=== PATIENT | female | born 1955 | race Caucasian/White ===

== ENCOUNTER 2023-08-02 13:07 | Emergency (ER) | payer MEDICARE ==
--- NOTE | 2023-08-02 13:18 | ERPHSYRPT ---
- History of Present Illness Time Seen by Provider: 08/02/23 13:07 Historian: patient, EMS Exam Limitations: no limitations Physician History: Reportedly pt had a colonoscopy at [facility] on 07/23/23 where multiple polyps were removed. Pt started with diffuse 6/10 in severity abdominal cramps, hematemesis and dark blood in stool yesterday. Pt denies chest pain, fever, headache; admits to shortness of air for the past hour. Allergies/Adverse Reactions: No Known Drug Allergies Allergy (Verified 08/02/23 13:20) Home Medications: Atorvastatin Calcium 40 mg PO DAILY 08/02/23 [History] Dextromethorphan HBr/Quinidine [Nuedexta 20-10 mg Capsule] 1 each PO BID 08/02/23 [History] Duloxetine HCl 30 mg [Cymbalta 30 MG Capsule] 30 mg PO DAILY 08/02/23 [History] Levothyroxine Sodium 150 Mcg [Synthroid 150 Mcg] 150 mcg PO DAILY 08/02/23 [History] Propranolol HCl 10 mg PO LUNCH 08/02/23 [History] Propranolol HCl 20 mg PO BREAKFAST 08/02/23 [History] Valsartan/Hydrochlorothiazide [Valsartan-Hctz 160-25 mg Tab] 1 each PO DAILY 08/02/23 [History] Zonisamide 100 mg PO BID 08/02/23 [History] buPROPion HCL [Bupropion Xl] 450 mg PO DAILY 08/02/23 [History] - Review of Systems Constitutional: No Fever Ears, Nose, & Throat: No Throat Pain Respiratory: Dyspnea Cardiac: No Chest Pain Abdominal/Gastrointestinal: Abdominal Pain, Vomiting, Hematemesis, Melena Neurological: No Headache - Nursing Vital Signs Nursing Vital Signs: Initial Vital Signs Pulse Rate 128 H 08/02/23 13:07 Respiratory Rate 34 H 08/02/23 13:07 Blood Pressure 72/46 08/02/23 13:07 Pain Scale Pain Intensity 0 - Physical Exam General Appearance: alert Eye Exam: PERRL/EOMI Ears, Nose, Throat Exam: TMs normal, dry mucous membranes Neck Exam: normal inspection Respiratory Exam: lungs clear Cardiovascular Exam: tachycardia Gastrointestinal/Abdomen Exam: soft, tenderness (mild diffuse), other (B.S. mildly hyperactive and normotonic) Extremity Exam: No pedal edema Neurologic Exam: alert, cooperative Skin Exam: pale - Course EKG Interpreted by Me: RATE (127), Sinus Tach, NORMAL AXIS, Other (QTc = 442) - Radiology Exams Chest X-ray Interpretation: Teleradiologist Report (Right upper lung zone nodule likely a granuloma. No acute pulmonary disease.) - CT Exams Abdomen/Pelvis CT Interpretation: Tele-radiologist Report (See report.) Ordered Tests: Active Orders 24 hr Category Date Time Status EKG-ER Only STAT Care 08/02/23 13:13 Active EKG-ER Only STAT Care 08/02/23 17:44 Active IV Insertion STAT Care 08/02/23 13:13 Active ABDOMEN AND PELVIS W/0 CONTRAS [CT] Stat Exams 08/02/23 13:14 Completed CHEST 1 VIEW (PORTABLE) Stat Exams 08/02/23 13:18 Completed AMYLASE Stat Lab 08/02/23 13:15 Completed CBC W DIFF Stat Lab 08/02/23 13:15 Completed CMP Stat Lab 08/02/23 13:15 Completed CULTURE,URINE Stat Lab 08/02/23 13:13 Ordered LIPASE Stat Lab 08/02/23 13:15 Completed PROTIME WITH INR Stat Lab 08/02/23 13:15 Completed PTT Stat Lab 08/02/23 13:15 Completed TROPONIN Q4H Lab 08/02/23 13:15 Completed TROPONIN Q4H Lab 08/02/23 17:15 Completed TROPONIN Q4H Lab 08/02/23 21:15 Ordered UA W/RFX UR CULTURE Stat Lab 08/02/23 13:13 Ordered Transfer Order Routine Transfer 08/02/23 Ordered Medication Summary Generic Name Dose Route Start Last Admin Trade Name Freq PRN Reason Stop Dose Admin Sodium Chloride 1,000 mls @ 125 mls/hr 08/02/23 14:45 08/02/23 14:57 Sodium Chloride 0.9% 1000 Ml IV 09/01/23 14:44 125 mls/hr .Q8H JASIEL Administration Lorazepam 0.5 mg 08/02/23 16:07 08/02/23 16:09 Lorazepam 2 Mg/1 Ml 2 Mg Vial IV 09/01/23 16:06 0.5 mg Q4H PRN PRN Administration ANXIETY Lorazepam 0.5 mg 08/02/23 18:51 Lorazepam 2 Mg/1 Ml 2 Mg Vial IV 09/01/23 18:50 Q4H PRN PRN ANXIETY Discontinued Medications Generic Name Dose Route Start Last Admin Trade Name Kelsea PRN Reason Stop Dose Admin Sodium Chloride 1,000 mls @ 999 mls/hr 08/02/23 13:13 08/02/23 14:38 Sodium Chloride 0.9% 1000 Ml IV 08/02/23 14:13 Infused .Q1H1M STA Infusion Sodium Chloride Confirm 08/02/23 13:26 Sodium Chloride 0.9% 1000 Ml Administered 08/02/23 13:27 Dose 1,000 mls @ ud .ROUTE .STK-MED ONE Pantoprazole Sodium 40 mg 08/02/23 13:21 08/02/23 13:28 Pantoprazole 40 Mg Vial IV 08/02/23 13:22 40 mg STAT ONE Administration Pantoprazole Sodium Confirm 08/02/23 13:25 Pantoprazole 40 Mg Vial Administered 08/02/23 13:26 Dose 40 mg IV .STK-MED ONE Lab/Rad Data: Laboratory Result Diagrams 08/02/23 13:15 08/02/23 13:15 Laboratory Results 08/02/23 08/02/23 08/02/23 Range/Units 17:15 13:16 13:16 WBC (4.0-10.5) x10^3/uL RBC (4.1-5.4) x10^6/uL Hgb (12.0-16.0) g/dL Hct (35-47) % MCV (78-100) fL MCH (26-32) pg MCHC (32-36) g/dL RDW (11.5-14.0) % Plt Count (150-450) x10^3/uL MPV (7.5-11.0) fL Gran % (36.0-66.0) % Immature Gran % (Auto) (0.00-0.4) % Nucleat RBC Rel Count (0.00-0.1) % Eos # (Auto) (0-0.5) x10^3/uL Immature Gran # (Auto) (0.00-0.03) x10^3u/L Absolute Lymphs (auto) (1.0-4.6) x10^3/uL Absolute Monos (auto) (0.0-1.3) x10^3/uL Absolute Nucleated RBC (0.00-0.01) x10^3u/L Lymphocytes % (24.0-44.0) % Monocytes % (0.0-12.0) % Eosinophils % (0.00-5.0) % Basophils % (0.0-0.4) % Absolute Granulocytes (1.4-6.9) x10^3/uL Basophils # (0-0.4) x10^3/uL PT (9.4-12.5) SECONDS INR (0.8-3.0) APTT (25.1-36.5) SECONDS Sodium (137-145) mmol/L Potassium (3.5-5.1) mmol/L Chloride (98-107) mmol/L Carbon Dioxide (22-30) mmol/L Anion Gap (5-15) MEQ/L BUN (7-17) mg/dL Creatinine (0.52-1.04) mg/dL Estimated GFR ML/MIN Glucose (74-106) mg/dL Calcium (8.4-10.2) mg/dL Total Bilirubin (0.2-1.3) mg/dL AST (14-36) U/L ALT (0-35) U/L Alkaline Phosphatase (38-126) U/L Troponin I 2.720 H* (0.000-0.034) ng/mL Serum Total Protein (6.3-8.2) g/dL Albumin (3.5-5.0) g/dL Amylase (30-110) U/L Lipase (23-300) U/L ABO Group O Rh Factor POSITIVE Antibody Screen NEGATIVE (NEGATIVE) Crossmatch COMPATIBLE COMPATIBLE (COMPATIBLE) 08/02/23 08/02/23 08/02/23 Range/Units 13:15 13:15 13:15 WBC (4.0-10.5) x10^3/uL RBC (4.1-5.4) x10^6/uL Hgb (12.0-16.0) g/dL Hct (35-47) % MCV (78-100) fL MCH (26-32) pg MCHC (32-36) g/dL RDW (11.5-14.0) % Plt Count (150-450) x10^3/uL MPV (7.5-11.0) fL Gran % (36.0-66.0) % Immature Gran % (Auto) (0.00-0.4) % Nucleat RBC Rel Count (0.00-0.1) % Eos # (Auto) (0-0.5) x10^3/uL Immature Gran # (Auto) (0.00-0.03) x10^3u/L Absolute Lymphs (auto) (1.0-4.6) x10^3/uL Absolute Monos (auto) (0.0-1.3) x10^3/uL Absolute Nucleated RBC (0.00-0.01) x10^3u/L Lymphocytes % (24.0-44.0) % Monocytes % (0.0-12.0) % Eosinophils % (0.00-5.0) % Basophils % (0.0-0.4) % Absolute Granulocytes (1.4-6.9) x10^3/uL Basophils # (0-0.4) x10^3/uL PT 11.1 (9.4-12.5) SECONDS INR 1.02 (0.8-3.0) APTT 22.2 L (25.1-36.5) SECONDS Sodium 132 L (137-145) mmol/L Potassium 3.9 (3.5-5.1) mmol/L Chloride 105 (98-107) mmol/L Carbon Dioxide 16 L* (22-30) mmol/L Anion Gap 15.4 H (5-15) MEQ/L BUN 29 H (7-17) mg/dL Creatinine 1.00 (0.52-1.04) mg/dL Estimated GFR 62.1 ML/MIN Glucose 179 H (74-106) mg/dL Calcium 8.1 L (8.4-10.2) mg/dL Total Bilirubin 0.40 (0.2-1.3) mg/dL AST 25 (14-36) U/L ALT 20 (0-35) U/L Alkaline Phosphatase 75 (38-126) U/L Troponin I 0.191 H* (0.000-0.034) ng/mL Serum Total Protein 4.9 L (6.3-8.2) g/dL Albumin 2.9 L (3.5-5.0) g/dL Amylase 121 H (30-110) U/L Lipase 61 (23-300) U/L ABO Group Rh Factor Antibody Screen (NEGATIVE) Crossmatch (COMPATIBLE) 08/02/23 Range/Units 13:15 WBC 12.1 H (4.0-10.5) x10^3/uL RBC 2.43 L (4.1-5.4) x10^6/uL Hgb 7.3 L (12.0-16.0) g/dL Hct 23.3 L (35-47) % MCV 95.9 (78-100) fL MCH 30.0 (26-32) pg MCHC 31.3 L (32-36) g/dL RDW 12.2 (11.5-14.0) % Plt Count 273 (150-450) x10^3/uL MPV 8.9 (7.5-11.0) fL Gran % 78.6 H (36.0-66.0) % Immature Gran % (Auto) 0.7 H (0.00-0.4) % Nucleat RBC Rel Count 0.0 (0.00-0.1) % Eos # (Auto) 0.05 (0-0.5) x10^3/uL Immature Gran # (Auto) 0.08 H (0.00-0.03) x10^3u/L Absolute Lymphs (auto) 2.00 (1.0-4.6) x10^3/uL Absolute Monos (auto) 0.43 (0.0-1.3) x10^3/uL Absolute Nucleated RBC 0.00 (0.00-0.01) x10^3u/L Lymphocytes % 16.5 L (24.0-44.0) % Monocytes % 3.6 (0.0-12.0) % Eosinophils % 0.4 (0.00-5.0) % Basophils % 0.2 (0.0-0.4) % Absolute Granulocytes 9.51 H (1.4-6.9) x10^3/uL Basophils # 0.03 (0-0.4) x10^3/uL PT (9.4-12.5) SECONDS INR (0.8-3.0) APTT (25.1-36.5) SECONDS Sodium (137-145) mmol/L Potassium (3.5-5.1) mmol/L Chloride (98-107) mmol/L Carbon Dioxide (22-30) mmol/L Anion Gap (5-15) MEQ/L BUN (7-17) mg/dL Creatinine (0.52-1.04) mg/dL Estimated GFR ML/MIN Glucose (74-106) mg/dL Calcium (8.4-10.2) mg/dL Total Bilirubin (0.2-1.3) mg/dL AST (14-36) U/L ALT (0-35) U/L Alkaline Phosphatase (38-126) U/L Troponin I (0.000-0.034) ng/mL Serum Total Protein (6.3-8.2) g/dL Albumin (3.5-5.0) g/dL Amylase (30-110) U/L Lipase (23-300) U/L ABO Group Rh Factor Antibody Screen (NEGATIVE) Crossmatch (COMPATIBLE) - Progress Progress: improved Progress Note: 08/02/23 17:46 Spoke with & discussed case with Dr. Erickson([id number]) who accepted pt for t mike to [facility] as a direct admission. 08/02/23 18:26 Repeat EKG shows wxdn=507, ST segment elevations in V2 - V6, QTc = 436. Repeat troponin was 2.72. 08/02/23 18:[address] Christensen(Tobacco Sample Puller on STEMI team)([id number]) who accepted pt for transfer to [facility] ER. Discussed with Dr.: Hi (Pt referred to [facility] by Dot hendrix), Other (Spoke with and discussed case with Dr. Arreguin(Production Truck Driver)([id number]) who accepted pt for transfer to [facility] as a direct admission.) Counseled pt/family regarding: lab results, diagnosis, need for follow-up, rad results Medical Desision Making - Diagnostic Testing Diagnostic test were ordered, analyzed, and reviewed by me: Yes - Departure Departure Disposition: Transfer ([facility]) Clinical Impression: GI bleed, Elevated troponin, Hypotension, Tachycardia, Dyspnea, Anterior Myocardial Infarction Condition: Stable Critical Care Time: Yes Critical Care Time(excluding separately billable procedures): Critical 30-74 m ins Referrals: SREE HOPSON, SAW TAILER [Primary Care Provider] - Follow up/PCP as directed
[2023-08-02 13:20] VITALS: TEMP 96.4
[2023-08-02] MEDS ORDERED: PROTONIX 40 MG IV IV ONE (13:25)
[2023-08-02] MEDS ORDERED: Sodium Chloride 0.9% 1000 ML 1,000 ML ONE ×2 (13:26→14:56)
[2023-08-02 13:28] LABS: Absolute Neutrophil Ct (ANC) 9.51 x10^3/uL (1.4-6.9); BASOPHIL % 0.2 % (0.0-0.4); Basophil (Absolute #) 0.03 x10^3/uL (0-0.4); Eosinophil % 0.4 % (0.00-5.0); Eosinophil (Absolute #) 0.05 x10^3/uL (0-0.5); Hematocrit 23.3 % (35-47); Hemoglobin 7.3 g/dL (12.0-16.0); IMMATURE GRAN # 0.08 x10^3u/L (0.00-0.03); IMMATURE GRAN % 0.7 % (0.00-0.4); Lymphocytes % 16.5 % (24.0-44.0); Mean Cell Volume 95.9 fL (78-100); Mean Corpuscular Hgb Concent. 31.3 g/dL (32-36); Mean Platelet Volume 8.9 fL (7.5-11.0); Monocyte (Absolute #) 0.43 x10^3/uL (0.0-1.3); Monocytes % 3.6 % (0.0-12.0); Neutrophil % 78.6 % (36.0-66.0); Platelet Count 273 x10^3/uL (150-450); Red Blood Count 2.43 x10^6/uL (4.1-5.4); Red Cell Distribution Width 12.2 % (11.5-14.0); White Blood Count 12.1 x10^3/uL (4.0-10.5)
[2023-08-02] MEDS: PROTONIX 40 MG IV IV ONE (13:28)
[2023-08-02] MEDS: Sodium Chloride 0.9% 1000 ML 1,000 ML IV STA (13:28)
[2023-08-02 13:43] LABS: ALBUMIN 2.9 g/dL (3.5-5.0); ANION GAP 15.4 MEQ/L (5-15); BILIRUBIN,TOTAL 0.4 mg/dL (0.2-1.3); Calcium 8.1 mg/dL (8.4-10.2); EST GLOMERULAR FILTRATION RATE 62.1 ML/MIN; Potassium 3.9 mmol/L (3.5-5.1); Total Protein 4.9 g/dL (6.3-8.2)
[2023-08-02 13:44] LABS: INR 1.02 (0.8-3.0); PROTIME 11.1 SECONDS (9.4-12.5); PTT 22.2 SECONDS (25.1-36.5)
[2023-08-02 14:23] LABS: ABO TYPING O; Antibody Screen NEGATIVE (NEGATIVE); RH TYPING POSITIVE
[2023-08-02 14:25] LABS: CROSS MATCH (PRBC) COMPATIBLE (COMPATIBLE)
--- NOTE | 2023-08-02 14:47 | XRAY ---
CLINICAL HISTORY: tachycardia TECHNIQUE: X-ray of chest frontal portable projection. COMPARISON: None. FINDINGS: Right upper lung zone tiny nodule likely a granuloma. Bilateral basal atelectasis . Normal dayanara and mediastinum. Borderline cardiomegaly noted. Aortic calcifications are seen. Both costophrenic angles are clear. Visualized bones show mild degenerative changes. Right shoulder arthroplasty is seen. IMPRESSION: 1. Right upper lung zone nodule likely a granuloma. 2. No acute pulmonary disease. Electronically Signed by: Sherry Lion MD. (08/02/2023 14:43:49 EST)
--- NOTE | 2023-08-02 14:51 | XRAY ---
CLINICAL HISTORY: pain TECHNIQUE: A CT scan of the abdomen and pelvis was performed without contrast. Coronal and sagittal reconstructive images were also obtained. COMPARISON: None FINDINGS: Abdomen: The liver is average in size and measures 17 cm and is showing multiple tiny calcific foci within, likely signifying calcified granulomas. The intrahepatic biliary radicals and the bile ducts are normal. The spleen is also showing multiple tiny calcified granulomas. The pancreas and right adrenal gland are unremarkable. A small lesion is seen in the left adrenal gland measuring 20 x 22mm showing internal fat densities, signifying lipid-rich adenoma. The kidneys are unremarkable. They are normal in size and shape. No calculi or hydronephrosis. The gallbladder is normal. No pericholecystic collection or radio-dense calculi within the gall bladder. A few metallic clips are seen adjacent to the fundus of the gallbladder, requiring clinical correlation. The ascending colon, the transverse colon, the descending colon, visualized small bowel loops are unremarkable. There is no evidence of significant enlargement of the mesenteric or retroperitoneal lymph nodes. Pelvis: The urinary bladder is unremarkable. The rectosigmoid colon is fecal-loaded. The prostate appears to be normal. No evidence of pelvic lymphadenopathy. The bony structures in the pelvis, lower rib cage, and lumbar spine show some degenerative changes. Marked lumbar spondylosis with scoliotic deformity and convexity towards the left side is seen. Bilateral total hip replacement seems intact. Slices through the lower chest show a few fibrotic bands in the posterior segments of bilateral lower lobes. IMPRESSION: 1. Calcific granulomas in the liver and spleen. 2. A few metallic clips in the vicinity of the gallbladder fundus, require clinical correlation. 3. Left adrenal hypodense nodule with fat density, signifying lipid-rich adenoma. 4. Fecal-loaded rectosigmoid colon correlates clinically with constipation. 5. Marked degenerative changes in the spine with levo-scooliotic deformity. Electronically Signed by: Sherry Lion MD. (08/02/2023 14:46:53 EST)
[2023-08-02] MEDS: Sodium Chloride 0.9% 1000 ML 1,000 ML IV SCH (14:57)
[2023-08-02 15:09] VITALS: O2SAT 100
[2023-08-02] MEDS ORDERED: Ativan 2 MG/1 ML VIAL ONE ×2 (16:09→19:13)
[2023-08-02] MEDS: Ativan 2 MG/1 ML VIAL IV PRN (16:09)
[2023-08-02] MEDS ORDERED: Ativan 2 MG/1 ML VIAL IV PRN (18:51)
[2023-08-02 19:29] VITALS: BP 120/78; PULSE 100; RESP 15
== END 2023-08-02 19:45 | disposition short-term general hospital (02) ==
LOC: ED 13:07
DX: K92.2 Gastrointestinal hemorrhage, unspecified (principal); R00.0 Tachycardia, unspecified; R77.8 Other specified abnormalities of plasma proteins; I95.9 Hypotension, unspecified; R06.00 Dyspnea, unspecified; I21.09 ST elevation (STEMI) myocardial infarction involving other coronary artery of anterior wall; R10.9 Unspecified abdominal pain; K92.0 Hematemesis; K92.1 Melena; Z79.899 Other long term (current) drug therapy
CPT/HCPCS: 36415; 36430; 71045; 74176; 80053; 82150; 83690; 84484; 85025; 85610; 85730; 86850; 86900; 86901; 86922; 93005; 96360; 96374; 96375; 96376; 99285; 99291; P9016; J2060

== ENCOUNTER 2023-12-15 14:11 | Emergency (ER) | payer MEDICARE ==
[2023-12-15 14:20] VITALS: BP 122/73; PULSE 69; TEMP 98.3; O2SAT 98
--- NOTE | 2023-12-15 15:30 | ERPHSYRPT ---
- History of Present Illness Time Seen by Provider: 12/15/23 15:24 Source: patient, family Patient Subjective Stated Complaint: Pt c/o of left knee pain for the past 10 days Triage Nursing Assessment: Pt brought to the ER by her , marycruz wnl, rates pain as 8/10 when not walking, pulses normal, skin n/w/d, left knee appears swollen, denies injury, pain began 10 days ago and has gotten progressively worse, doesn't appear to be in any distress Physician History: Patient is 68-year-old female with significant past medical history of hypertension hyperlipidemia started having pain in her left knee started approximately 10 days ago it gradually got worse so she came to the emergency room she has taken tramadol Tylenol ibuprofen at home but without any help she also has a difficulty in walking because of the knee pain. Method of Injury: unknown Occurred: days ago (ten days ago) Quality: constant Severity of Pain-Max: moderate Severity of Pain-Current: moderate Lower Extremities Pain: knee: left Modifying Factors: Improves With: nothing Associated Symptoms: unable to bear weight, No dizzy, No fainted, No seizure, No snapping sensation, No popping sensation Allergies/Adverse Reactions: No Known Drug Allergies Allergy (Verified 12/15/23 14:20) Home Medications: Dextromethorphan HBr/Quinidine [Nuedexta 20-10 mg Capsule] 1 each PO TID 08/02/23 [History] Duloxetine HCl 30 mg [Cymbalta 30 MG Capsule] 60 mg PO DAILY 08/02/23 [History] Levothyroxine Sodium 150 Mcg [Synthroid 150 Mcg] 175 mcg PO DAILY 08/02/23 [History] buPROPion HCL [Bupropion Xl] 450 mg PO DAILY 08/02/23 [History] Carvedilol [Coreg ] 6.25 mg PO BID 12/15/23 [History] Rosuvastatin Calcium 40 mg PO HS 12/15/23 [History] Topiramate 100 mg [Topamax 100 MG] 100 mg PO TID 12/15/23 [History] Tramadol HCl 50 mg [Ultram 50 mg] 50 mg PO UD 12/15/23 [History] Hx Tetanus, Diphtheria Vaccination/Date Given: No Hx Influenza Vaccination/Date Given: Yes Hx Pneumococcal Vaccination/Date Given: No Travel Risk - International Travel Have you traveled outside of the country in past 3 weeks: No - Emerging Infectious Disease Are you exhibiting symptoms associated with any current EIDs: No - Review of Systems Constitutional: No Symptoms Ears, Nose, & Throat: No Symptoms Respiratory: No Symptoms Cardiac: No Symptoms Abdominal/Gastrointestinal: No Symptoms Genitourinary Symptoms: No Symptoms Musculoskeletal: Joint Pain, Joint Swelling (left knee, medial side), No Fall Skin: No Symptoms Neurological: No Symptoms Psychological: No Symptoms Endocrine: No Symptoms Hematologic/Lymphatic: No Symptoms Immunological/Allergic: No Symptoms - Past Medical History Pertinent Past Medical History: Yes Neurological History: No Pertinent History ENT History: Cataracts, Other Cardiac History: High Cholesterol, Hypertension Respiratory History: No Pertinent History Endocrine Medical History: Hypoglycemia Musculoskeletal History: Arthritis, Other GI Medical History: No Pertinent History History: No Pertinent History Psycho-Social History: Anxiety Female Reproductive Disorders: No Pertinent History Other Medical History: amd bilateral eye. osteopenia - Past Surgical History Past Surgical History: Yes Other Surgical History: colonoscopy. tubal and ovaries removed. bilateral hip. right shoulder. tonsils and adnoids - Social History Smoking Status: Former smoker Exposure to second hand smoke: Yes Drug Use: none Patient Lives Alone: No - Social Determinants of Health Will the patient participate in the screening: Yes Do you worry about a steady place to live?: No Do you have any problems with any of the following?: No known problems In the past 12 months,have you had to go without utilities?: No Transportation Issues: No Has anyone in your support network made you feel unsafe?: No Have you or anyone in your house had to go without enough: No - Nursing Vital Signs Nursing Vital Signs: Initial Vital Signs Temperature 98.3 F 12/15/23 14:14 Pulse Rate 69 12/15/23 14:14 Blood Pressure 122/73 12/15/23 14:14 O2 Sat by Pulse Oximetry 98 12/15/23 14:14 Pain Scale Pain Intensity 8 - Physical Exam General Appearance: no apparent distress Eyes, Ears, Nose, Throat Exam: normal ENT inspection Neck Exam: normal inspection Cardiovascular/Respiratory Exam: chest non-tender Gastrointestinal/Abdominal Exam: non-tender Back Exam: normal inspection Hips Exam: bilateral: non-tender Legs Exam: bilateral leg: non-tender Knees Exam: right knee: non-tender, normal inspection, normal range of motion, no evidence of injury, left knee: joint effusion, pain, soft tissue tenderness, swelling Ankle Exam: bilateral ankle: non-tender Foot Exam: bilateral foot: non-tender Neuro/Tendon Exam: normal sensation, normal motor functions, normal tendon functions Mental Status Exam: alert, oriented x 3 Skin Exam: normal color SpO2 Interpretation: normal SpO2: 98 O2 Delivery: Room Air - Course Nursing assessment & vital signs reviewed: Yes - Radiology Exams Knee X-ray Interpretation: Interpreted by me, Reviewed by me, Negative, No Fracture (arthritic changes) Ordered Tests: Active Orders 24 hr Category Date Time Status KNEE (3 VIEWS) Stat Exams 12/15/23 14:36 Taken Medication Summary Discontinued Medications Generic Name Dose Route Start Last Admin Trade Name Kelsea PRN Reason Stop Dose Admin Ketorolac Tromethamine 60 mg 12/15/23 15:35 12/15/23 15:44 Ketorolac Tromethamine 30 Mg/Ml Inj IM 12/15/23 15:36 60 mg STAT ONE Administration Ketorolac Tromethamine Confirm 12/15/23 15:44 Ketorolac Tromethamine 30 Mg/Ml Inj Administered 12/15/23 15:45 Dose 60 mg .ROUTE .STK-MED ONE - Progress Progress: unchanged, pain not gone completely Counseled pt/family regarding: diagnosis, need for follow-up, rad results Medical Desision Making - Independent Historian Additional History obtained from: Spouse - Diagnostic Testing Diagnostic test were ordered, analyzed, and reviewed by me: Yes Radiological Interpretation: Interpreted by me, Reviewed by me - Risk of complications Low Risk: Low risk of morbidity from additional dx testing or treatment - Departure Departure Disposition: Home Clinical Impression: Left medial knee pain Osteoarthritis (arthritis due to wear and tear of joints) Qualifiers: Osteoarthritis location: knee Osteoarthritis type: primary Laterality: left Qualified Code(s): M17.12 - Unilateral primary osteoarthritis, left knee Condition: Stable Critical Care Time: No Referrals: SREE HOPSON WAREHOUSE PULLER [Primary Care Provider] - Follow up/PCP as directed Instructions: Osteoarthritis, Knee Pain (DC) Additional Instructions: You have arthritis on the inner side of your left knee according to x-ray. Apply Voltaren gel and moist heat. Applied knee brace. Follow-up with your primary care physician. Take anti-inflammatory pain medication we have given send it to your pharmacy. Discharge/Care Plan GURPREET BLANCAS was seen on 12/15/23 in the Emergency Room. The patient was counseled regarding Diagnosis,Lab results, Imaging studies, need for follow up and when to return to the Emergency Room. Prescriptions given: Discharge Note I have spoken with the patient and/or caregivers. I have explained the patient's condition, diagnosis and treatment plan based on the information available to me at this time. I have answered the patient's and/or caregiver's questions and addressed any concerns. The patient and/or caregivers have as good understanding of the patient's diagnosis, condition and treatment plan as can be expected at this point. The vital signs have been stable. The patient's condition is stable and appropriate for discharge from the emergency department. The patient will pursue further outpatient evaluation with the primary care physician or other designated or consulting physician as outlined in the discharge instructions. The patient and/or caregivers are agreeable to this plan of care and follow-up instructions have been explained in detail. The patient and/or caregivers have received these instruction. The patient/and or caregivers are aware that any significant change in condition or worsening of symptoms should prompt an immediate return to this or the closest emergency department or call 911. GURPREET BLANCAS was seen on 12/15/23 n the Emergency Room. At that time you were treated for an emergent condition, during your visit Laboratory, Radiology and/or other procedures may have been ordered. It is very important that you follow-up with your Primary Care Physician SREE HOPSON within the next 24-48 hours to review your Emergency Room visit and the final results of testing that was ordered. Some test results such as Urine Cultures, Blood Cultures, and other cultures if ordered will not be finalized for 24-48 hours. If you do not have a Primary Care Provider please call the medical records department at [phone] ext [phone] to obtain a copy of your results or you may sign into our patient portal to obtain these results by visiting us @ [email or web address] and completing the following steps: 1. Click on the Patient Portal link 2. Click the Patient Self Enrollment Link to complete the enrollment form and entering your 3. Once the enrollment form is completed you will receive an email with a temporary ID and password at the email address you provided. 4. Next choose a user name and password. Your user name must be at least 4 characters long and your password must be at least 4 characters long. 5. Choose a security question from the list and provide your answer to the question. If you already have signed into the Health Portal you may access your Health Care Information 31/12 by the following steps: 1. Login to our website @ [email or web address] 2. Enter your original user name and password. FAQS The [facility] Portal is an online tool that contains your Lab Results, Radiology Reports, Visit History, Discharge Instructions and Health Summary Lab and Radiology Results will not be available for 72 hours on the portal. The Portal is a secure site, passwords are encryted and URLs are re-written so they cannot be copied and pasted. You and authorized family members are the only ones who can access your Portal. Also there is a timeout feature that protects your information if you leave the Portal page open. If you have technical difficulty please use the Contact Us link on the page this will allow you to submit any questions you have regarding the Portal or you may contact the Medical Record Department at [phone]. Prescriptions: Naproxen 375 mg [Naprosyn 375 mg] 375 mg PO Q8H #30 tablet
[2023-12-15] MEDS: TORAdol 30 mg Injection IM ONE (15:44)
[2023-12-15] MEDS ORDERED: TORAdol 30 mg Injection ONE (15:44)
--- NOTE | 2023-12-15 19:45 | XRAY ---
Indication: Swelling. No known injury. Comparison: None 3 view left knee demonstrates osteopenia, mild tricompartmental degenerative changes, and small nonspecific effusion. No other bony, articular, or soft tissue abnormalities.
== END 2023-12-15 16:10 | disposition home or self-care (01) ==
LOC: ED 14:11
DX: M17.12 Unilateral primary osteoarthritis, left knee (principal); M25.562 Pain in left knee; I10 Essential (primary) hypertension; E78.5 Hyperlipidemia, unspecified; Z79.891 Long term (current) use of opiate analgesic; Z79.899 Other long term (current) drug therapy
CPT/HCPCS: 73562; 96372; 99283; J1885

== ENCOUNTER 2024-05-19 11:05 | Emergency (ER) | payer MEDICARE ==
[2024-05-19 12:09] VITALS: TEMP 97.8
--- NOTE | 2024-05-19 12:21 | ERPHSYRPT ---
- History of Present Illness Time Seen by Provider: 05/19/24 12:10 Source: patient Exam Limitations: no limitations Patient Subjective Stated Complaint: Hand injury-left Triage Nursing Assessment: Patient ambulated back to ED and transferred self to bed. Patient A+O X 3. Patient's skin pink, warm and dry. Patient states she tripped and fell yesterday and attempted to "catch" herself landing on her left hand. Patient states her finger bent backwards. Patient complains of pain to left hand 01/17. No bruising or swelling noted. Pulses noted Physician History: 68-year-old female presents to emergency department for evaluation of pain to her left hand. Patient states she tripped and fell on her outstretched arm. Patient states she hyper extended her fingers. Pain described as an ache that is localized. Pain mostly around her knuckles. No BHT or LOC no neck pain. Cervical spine cleared clinically. Patient had Tylenol just prior to arrival. Patient otherwise feels well. No other injuries reported. Patient voices no other complaints or concerns at this time. Portions of this note were created with voice recognition technology. There may be grammatical, spelling, punctuation or sound alike errors Occurred: yesterday Method of Injury: fell Quality: constant Severity of Pain-Max: moderate Severity of Pain-Current: mild Extremities Pain Location: hand: left Modifying Factors: Improves With: movement Associated Symptoms: none Allergies/Adverse Reactions: No Known Drug Allergies Allergy (Verified 05/19/24 11:59) Home Medications: Dextromethorphan HBr/Quinidine [Nuedexta 20-10 mg Capsule] 1 each PO TID 08/02/23 [History] Duloxetine HCl 30 mg [Cymbalta 30 MG Capsule] 60 mg PO DAILY 08/02/23 [History] Levothyroxine Sodium 150 Mcg [Synthroid 150 Mcg] 175 mcg PO DAILY 08/02/23 [History] buPROPion HCL [Bupropion Xl] 450 mg PO DAILY 08/02/23 [History] Carvedilol [Coreg ] 6.25 mg PO BID 12/15/23 [History] Rosuvastatin Calcium 40 mg PO HS 12/15/23 [History] Topiramate 100 mg [Topamax 100 MG] 100 mg PO TID 12/15/23 [History] Tramadol HCl 50 mg [Ultram 50 mg] 50 mg PO UD 12/15/23 [History] Hx Tetanus, Diphtheria Vaccination/Date Given: No Hx Influenza Vaccination/Date Given: No Hx Pneumococcal Vaccination/Date Given: No Immunizations Up to Date: Yes Travel Risk - International Travel Have you traveled outside of the country in past 3 weeks: No - Emerging Infectious Disease Are you exhibiting symptoms associated with any current EIDs: No - Review of Systems Constitutional: No Symptoms, No Fever, No Chills Eyes: No Symptoms Ears, Nose, & Throat: No Symptoms Respiratory: No Symptoms, No Cough, No Dyspnea Cardiac: No Symptoms, No Chest Pain, No Edema, No Syncope Abdominal/Gastrointestinal: No Symptoms, No Abdominal Pain, No Nausea, No Vomiting, No Diarrhea Genitourinary Symptoms: No Symptoms, No Dysuria Musculoskeletal: No Symptoms, No Back Pain, No Neck Pain Skin: No Symptoms, No Rash Neurological: No Symptoms, No Dizziness, No Focal Weakness, No Sensory Changes Psychological: No Symptoms Endocrine: No Symptoms Hematologic/Lymphatic: No Symptoms Immunological/Allergic: No Symptoms All Other Systems: Reviewed and Negative - Past Medical History Pertinent Past Medical History: Yes Neurological History: No Pertinent History ENT History: Cataracts, Other Cardiac History: High Cholesterol, Hypertension Respiratory History: No Pertinent History Endocrine Medical History: Hypoglycemia Musculoskeletal History: Arthritis, Other GI Medical History: No Pertinent History History: No Pertinent History Psycho-Social History: Anxiety Female Reproductive Disorders: No Pertinent History Other Medical History: amd bilateral eye. osteopenia - Past Surgical History Past Surgical History: Yes Other Surgical History: colonoscopy. tubal and ovaries removed. bilateral hip. right shoulder. tonsils and adnoids - Social History Smoking Status: Former smoker Exposure to second hand smoke: Yes Drug Use: none Patient Lives Alone: No - Social Determinants of Health Will the patient participate in the screening: Yes Do you worry about a steady place to live?: No Do you have any problems with any of the following?: No known problems In the past 12 months,have you had to go without utilities?: No Transportation Issues: No Has anyone in your support network made you feel unsafe?: No Have you or anyone in your house had to go without enough: No - Nursing Vital Signs Nursing Vital Signs: Initial Vital Signs Temperature 97.8 F 12/10/24 11:59 Pulse Rate 79 05/19/24 11:59 Respiratory Rate 20 05/19/24 11:59 Blood Pressure 110/62 05/19/24 11:59 O2 Sat by Pulse Oximetry 98 05/19/24 11:59 Pain Scale Pain Intensity 8 - Physical Exam General Appearance: alert Eyes, Ears, Nose, Throat Exam: moist mucous membranes Neck Exam: non-tender, supple Cardiovascular/Respiratory Exam: chest non-tender, normal breath sounds, regular rate/rhythm, no respiratory distress Abdominal Exam: non-tender, No guarding Back Exam: normal inspection, No vertebral tenderness Shoulder Exam: normal inspection, non-tender, no evidence of injury, normal ROM Elbow/Forearm Exam: normal inspection, non-tender, no evidence of injury, normal ROM Wrist Exam: normal inspection, non-tender, no evidence of injury, normal ROM Hand Exam: swelling (Minimal hand swelling. No open or draining lesions. Tenderness around the MCPs. The involved extremity is neurovascular tact distally compartments are soft cap refill less than 2 seconds.) Neuro/Tendon Exam: normal sensation, normal motor functions Mental Status Exam: alert, oriented x 3, cooperative Skin Exam: normal color, warm, dry, jaundice SpO2: 98 O2 Delivery: Room Air - Course Nursing assessment & vital signs reviewed: Yes Ordered Tests: Active Orders 24 hr Category Date Time Status HAND (MINIMUM 3 VIEWS) Stat Exams 05/19/24 11:58 Completed - Progress Progress: improved Progress Note: 68-year-old female presents to our ED status post fall x 1 day ago. Physical exam reveals some swelling around her left hand knuckles otherwise no open or draining lesions. The involved extremities neurovascular intact distally compartments are soft cap refill less than 2 seconds. X-ray shows chronic findings. No fractures or dislocations. Wrist cock-up splint provided. Patient referred to the orthopedic clinic for follow-up. Patient had Tylenol prior to arrival. Patient requested additional pain medication. IM Toradol ordered. A prescription for Toradol forwarded to patient's pharmacy. Son at bedside. Patient states she is ready for discharge. She voices no other complaints or concerns at this time. Portions of this note were created with voice recognition technology. There may be grammatical, spelling, punctuation or sound alike errors Complexity of problem addressed is moderate acute complicated no critical care time. Complexity of data reviewed and analyzed is moderate. Test ordered test reviewed results analyzed and correlated clinically with history and physical exam. Risk of complication and or risk of morbidity/mortality of patient management is moderate. A prescription for Toradol forwarded to patient's pharmacy. Vital stable. Time spent to discharge patient is approximately 15 minutes. Plan of care established for shared decision making. No social determinants of health present to impede follow-up. Portions of this note were created with voice recognition technology. There may be grammatical, spelling, punctuation or sound alike errors 05/19/24 12:57 Counseled pt/family regarding: diagnosis, need for follow-up, rad results - Departure Departure Disposition: Home Clinical Impression: Fall, Hand sprain, Hand pain, left Condition: Stable Critical Care Time: No Referrals: SREE HOPSON, DEFENSIVE DRIVING INSTRUCTOR [Primary Care Provider] - Follow up/PCP as directed Additional Instructions: Discharge/Care Plan GURPREET BLANCAS was seen on 05/19/24 in the Emergency Room. The patient was counseled regarding Diagnosis,Lab results, Imaging studies, need for follow up and when to return to the Emergency Room. Prescriptions given: Discharge Note I have spoken with the patient and/or caregivers. I have explained the patient's condition, diagnosis and treatment plan based on the information available to me at this time. I have answered the patient's and/or caregiver's questions and addressed any concerns. The patient and/or caregivers have as good understanding of the patient's diagnosis, condition and treatment plan as can be expected at this point. The vital signs have been stable. The patient's condition is stable and appropriate for discharge from the emergency department. The patient will pursue further outpatient evaluation with the primary care physician or other designated or consulting physician as outlined in the discharge instructions. The patient and/or caregivers are agreeable to this plan of care and follow-up instructions have been explained in detail. The patient and/or caregivers have received these instruction. The patient/and or caregivers are aware that any significant change in condition or worsening of symptoms should prompt an immediate return to this or the closest emergency department or call 911. Prescriptions: Ketorolac Trometh 10 mg Tab [TORAdol 10 MG TABLET] 10 mg PO TID 5 Days #15 tablet Outpatient Orders: Ortho Referral Time Frame: 1 Day, Facility: [facility], Location: ORTHO CLINIC
--- NOTE | 2024-05-19 12:47 | XRAY ---
Indication: Pain following fall. Comparison: None 3 view left hand demonstrates osteopenia, minimal degenerative changes all IP/MCP joints, and mild/moderate degenerative changes 1st metacarpal multangular scaphoid articulation. Base 1st proximal phalanx laterally demonstrates 2 mm round well-circumscribed ossification either degenerative versus old injury. No other bony, articular, or soft tissue abnormalities.
[2024-05-19] MEDS ORDERED: TORAdol 30 mg Injection ONE (13:00)
[2024-05-19] MEDS: TORAdol 30 mg Injection IM ONE (13:03)
[2024-05-19 13:07] VITALS: BP 133/77; PULSE 87; RESP 21; O2SAT 96
== END 2024-05-19 13:15 | disposition home or self-care (01) ==
LOC: ED 11:05
DX: S63.92XA Sprain of unspecified part of left wrist and hand, initial encounter (principal); M79.642 Pain in left hand; W01.0XXA Fall on same level from slipping, tripping and stumbling without subsequent striking against object, initial encounter
CPT/HCPCS: 73130; 96372; 99283; J1885

== ENCOUNTER 2025-01-06 13:12 | Emergency (ER) | payer MEDICARE ==
[2025-01-06 13:34] VITALS: TEMP 98
[2025-01-06 14:27] VITALS: BP 131/80; PULSE 82; RESP 18
[2025-01-06 14:30] VITALS: O2SAT 99
--- NOTE | 2025-01-06 14:30 | ERPHSYRPT ---
- History of Present Illness Time Seen by Provider: 01/06/25 13:20 Source: patient Exam Limitations: no limitations Patient Subjective Stated Complaint: pt states that yesterday while cleaning out her ears with a q-tip she feels like the cotton part is stuck and cant hear normal, sounds muffled Triage Nursing Assessment: pt alert/oriented, vitals stable, skin warm and dry no acute distress observed, will continue to monitor Physician History: 69 years old female presented in the ER with complaints of possible foreign body in right ear canal. Patient reports she was cleaning yesterday with a Q-tip and felt as if cotton part of the Q-tip is inside. She reports mild dull aching pain with muffled sounds/decreased listening. Patient reports she tried to take it out but could not. Denies any discharge. Allergies/Adverse Reactions: No Known Drug Allergies Allergy (Verified 05/19/24 11:59) Home Medications: Dextromethorphan HBr/Quinidine [Nuedexta 20-10 mg Capsule] 1 each PO TID 08/02/23 [History] Duloxetine HCl 30 mg [Cymbalta 30 MG Capsule] 60 mg PO DAILY 08/02/23 [History] Levothyroxine Sodium 150 Mcg [Synthroid 150 Mcg] 175 mcg PO DAILY 08/02/23 [History] buPROPion HCL [Bupropion Xl] 450 mg PO DAILY 08/02/23 [History] Carvedilol [Coreg ] 6.25 mg PO BID 12/15/23 [History] Rosuvastatin Calcium 40 mg PO HS 12/15/23 [History] Topiramate 100 mg [Topamax 100 MG] 100 mg PO TID 12/15/23 [History] Tramadol HCl 50 mg [Ultram 50 mg] 50 mg PO UD 12/15/23 [History] Hx Tetanus, Diphtheria Vaccination/Date Given: No Hx Influenza Vaccination/Date Given: No Hx Pneumococcal Vaccination/Date Given: No Travel Risk - International Travel Have you traveled outside of the country in past 3 weeks: No - Emerging Infectious Disease Are you exhibiting symptoms associated with any current EIDs: No - Review of Systems Constitutional: No Symptoms Eyes: No Symptoms Ears, Nose, & Throat: Ear Pain Respiratory: No Symptoms Cardiac: No Symptoms Abdominal/Gastrointestinal: No Symptoms Neurological: No Symptoms Endocrine: No Symptoms Hematologic/Lymphatic: No Symptoms - Past Medical History Pertinent Past Medical History: Yes Neurological History: No Pertinent History ENT History: Cataracts, Other Cardiac History: High Cholesterol, Hypertension Respiratory History: No Pertinent History Endocrine Medical History: Hypoglycemia Musculoskeletal History: Arthritis, Other GI Medical History: No Pertinent History History: No Pertinent History Psycho-Social History: Anxiety Female Reproductive Disorders: No Pertinent History Other Medical History: amd bilateral eye. osteopenia - Past Surgical History Past Surgical History: Yes - Social History Smoking Status: Former smoker Exposure to second hand smoke: Yes Drug Use: none - Social Determinants of Health Will the patient participate in the screening: Declined to provide - Nursing Vital Signs Nursing Vital Signs: Initial Vital Signs Temperature 98.0 F 01/06/25 13:25 Pulse Rate 76 01/06/25 13:25 Respiratory Rate 16 01/06/25 13:25 Blood Pressure 164/89 01/06/25 13:25 O2 Sat by Pulse Oximetry 99 01/06/25 13:25 Pain Scale Pain Intensity 2 - Physical Exam General Appearance: no apparent distress Eye Exam: bilateral eye: normal inspection Ear Exam: right ear: erythema (Canal), swelling, tenderness, other (No visible foreign body), left ear: canal normal, TM normal, bleeding, bilateral ear: auricle normal Nasal Exam: normal inspection Throat Exam: normal, pharynx normal Neck Exam: normal inspection, full range of motion Cardiovascular/Respiratory Exam: normal breath sounds, regular rate/rhythm Neurologic Exam: alert, oriented x 3, cooperative, commercial lines account assistant II-XII nml as tested Skin Exam: normal color SpO2 Interpretation: normal SpO2: 99 O2 Delivery: Room Air - Progress Progress: unchanged Progress Note: 01/06/25 14:24 Differential diagnosis. Foreign body right external ear/otitis media/otitis externa/TM rupture 69 years old is evaluated in the ER for possible piece of cotton from Q-tip in the right canal. I noticed diffuse irritation of the canal but no obvious foreign body. Patient was insisting it is inside, flushed but no foreign body retrieved by RN. No TM rupture on reevaluation. Do not appreciate any TM rupture. Patient has no discharge. Will start her on Ciprodex. Counseled on Q-tip use and outpatient follow-up. Discussed signs symptoms of worsening return to ER which she seems understanding Complexity of problems addressed: Moderate acuity Complexity of data reviewed/analyzed: Limited Risk of complication: Limited Counseled pt/family regarding: diagnosis, need for follow-up Medical Desision Making - Diagnostic Testing Diagnostic test were ordered, analyzed, and reviewed by me: No - Risk of complications Minimal Risk: Minimal risk of morbidity - Departure Departure Disposition: Home Clinical Impression: Otitis externa Condition: Stable Critical Care Time: No Referrals: SREE HOPSON CUSTOMER DEVELOPMENT REPRESENTATIVE [Primary Care Provider, UNKNOWN] - Follow up with PCP 1 day Instructions: Outer ear infection - ED discharge instructions Additional Instructions: Take Tylenol as needed. Do not use Q-tips. Follow-up with primary care for reevaluation and may need referral for ENT. Return to ER for any worsening. Prescriptions: Ciprofloxacin HCl/Dexameth [Ciproflox-Dexameth Otic Susp] 4 drop OT BID 7 Days #7.5 ml
== END 2025-01-06 14:35 | disposition home or self-care (01) ==
LOC: ED 13:12
DX: H60.91 Unspecified otitis externa, right ear (principal); H92.01 Otalgia, right ear; I10 Essential (primary) hypertension; Z79.899 Other long term (current) drug therapy